=== PATIENT | male | born 1945 | race Caucasian/White ===

== ENCOUNTER → 2021-01-28 | Outpatient (CLI) | payer MEDICARE | LOC: SJCVCIMAG 12:51 | PROVIDERS: ATTEND Nuclear Medicine Nuclear Cardiology | DX: I70.203 Unspecified atherosclerosis of native arteries of extremities, bilateral legs (principal); M79.606 Pain in leg, unspecified; I10 Essential (primary) hypertension; E78.00 Pure hypercholesterolemia, unspecified; I25.10 Atherosclerotic heart disease of native coronary artery without angina pectoris; E11.9 Type 2 diabetes mellitus without complications; Z88.8 Allergy status to other drugs, medicaments and biological substances; Z79.82 Long term (current) use of aspirin; Z79.899 Other long term (current) drug therapy; Z79.84 Long term (current) use of oral hypoglycemic drugs; M10.9 Gout, unspecified; Z95.1 Presence of aortocoronary bypass graft ==

== ENCOUNTER → 2021-05-01 | Outpatient (CLI) | payer MEDICARE | LOC: SJCVCIMAG 13:00 | PROVIDERS: ATTEND Nuclear Medicine Nuclear Cardiology | DX: I70.203 Unspecified atherosclerosis of native arteries of extremities, bilateral legs (principal); I25.10 Atherosclerotic heart disease of native coronary artery without angina pectoris; E78.00 Pure hypercholesterolemia, unspecified; I10 Essential (primary) hypertension; M10.9 Gout, unspecified; E11.42 Type 2 diabetes mellitus with diabetic polyneuropathy; I25.2 Old myocardial infarction; Z82.49 Family history of ischemic heart disease and other diseases of the circulatory system; Z88.8 Allergy status to other drugs, medicaments and biological substances; Z79.82 Long term (current) use of aspirin; Z79.84 Long term (current) use of oral hypoglycemic drugs; Z79.899 Other long term (current) drug therapy ==

== ENCOUNTER → 2021-05-06 | Outpatient (CLI) | payer OTHER | LOC: SJCVC 09:04 | PROVIDERS: ATTEND Nuclear Medicine Nuclear Cardiology | DX: I73.9 Peripheral vascular disease, unspecified (principal); I10 Essential (primary) hypertension; E78.00 Pure hypercholesterolemia, unspecified; I48.91 Unspecified atrial fibrillation; M10.9 Gout, unspecified; I25.2 Old myocardial infarction; E11.40 Type 2 diabetes mellitus with diabetic neuropathy, unspecified; I25.10 Atherosclerotic heart disease of native coronary artery without angina pectoris; Z88.8 Allergy status to other drugs, medicaments and biological substances; Z79.82 Long term (current) use of aspirin; Z79.899 Other long term (current) drug therapy; Z79.84 Long term (current) use of oral hypoglycemic drugs; Z95.5 Presence of coronary angioplasty implant and graft; Z82.49 Family history of ischemic heart disease and other diseases of the circulatory system ==

== ENCOUNTER → 2021-05-12 | Outpatient (CLI) | payer OTHER ==
[~2021-05-12] VITALS: Ht 188 cm; Wt 136.1 kg
[~2021-05-12] MED LIST: ALLOPURINOL 10100 M3 PO; AMIODARONE HCL400 MG PO; ASA81BEC PO; CARVEDILOL12.5 MG PO; CLONAZEPAM 0.50.5 M1 PO; COENZYME Q-1030 MG PO; ELIQUIS5 MG PO; FUROSEMIDE 20 M20 MG PO; FUROSEMIDE 40 M40 MG PO; GLIPIZIDE 10 MG10 MG PO; KLOR-CON M2020 MEQ PO; LEVO-T50 MCG PO; LIPITOR40 MG PO; LYRICA100 MG PO; OMEPRAZOLE 20 M20 M1 PO; PROSCAR 5MG TABL5 M1 PO; VITAMIN B-6100 MG PO
[2021-05-12 07:55] VITALS: BP 132/74
[2021-05-12 08:13] LABS: HEMATOCRIT 36.4 % (42.0-52.0); MCH 32.6 pg (26.0-34.0); MCHC 32.9 g/dL (28.0-37.0); MCV 99.1 fL (80.0-100.0); RBC 3.67 mil/uL (4.50-6.00); WBC 6.2 thou/uL (4.0-11.0)
[2021-05-12 08:58] LABS: CALCIUM 9.2 mg/dL (8.5-10.1); CREATININE 1.5 mg/dL (0.7-1.3)
--- NOTE | 2021-05-12 12:48 | NUR ---
PT TO GO HOME AND RESCHEDULE FOR TUESDAY. PT GIVEN INSTRUCTIONS TO TAKE [facility] TODAY AND THEN HOLD UNTIL AFTER PROCEDURE ON TUESDAY. RESCHEDULED ON TUESDAY DUE TO EMERGENT PROCEDURE BY DR HARVEY THAT IS TAKING LONGER THAN EXPECTED. PT IS STATES UNDERSTANDING OF SITUATION. PT DID NOT WANT TO STAY AND WAIT FOR PROCEDURE TODAY CANNOT DRIVE AT NIGHT, STATES CAN MAKE ARRANGEMENTS FOR OTHER TRANSPORTATION ON TUESDAY FOR DC. DR HARVEY AWARE PT IS GOING TO RESCHEDULE AND IS ALSO AGREEABLE.
== END | disposition home or self-care (01) ==
LOC: CATH 07:14
PROVIDERS: ATTEND Nuclear Medicine Nuclear Cardiology
DX: I73.9 Peripheral vascular disease, unspecified (principal); Z53.8 Procedure and treatment not carried out for other reasons; I10 Essential (primary) hypertension; I25.10 Atherosclerotic heart disease of native coronary artery without angina pectoris; I48.91 Unspecified atrial fibrillation; Z98.890 Other specified postprocedural states; Z79.899 Other long term (current) drug therapy; Z95.0 Presence of cardiac pacemaker; Z79.01 Long term (current) use of anticoagulants; Z88.8 Allergy status to other drugs, medicaments and biological substances

== ENCOUNTER → 2021-05-15 | Outpatient (CLI) | payer OTHER ==
[~2021-05-15] VITALS: Ht 188 cm; Wt 136.1 kg
[2021-05-15 11:05] VITALS: BP 143/88
--- NOTE | 2021-05-15 16:27 | NUR ---
LATE ENTRY. PTS BP NOTED TO INCREASE AFTER HYDRALIZINE 20MG. DR. HARVEY CONTACTED AND ORDERS RECEIVED. IN TIME OF GETTING MEDS FROM [facility]. NOTED PTS BP TO RETURN BELOW [address] HARVEY RECONTACTED AND REPORT GIVEN ALL MEDS HELD AT THIS TIME.
== END | disposition home or self-care (01) ==
LOC: CATH 07:37
PROVIDERS: ATTEND Nuclear Medicine Nuclear Cardiology
DX: I70.248 Atherosclerosis of native arteries of left leg with ulceration of other part of lower leg (principal); L97.929 Non-pressure chronic ulcer of unspecified part of left lower leg with unspecified severity; I70.213 Atherosclerosis of native arteries of extremities with intermittent claudication, bilateral legs; M79.605 Pain in left leg; I70.1 Atherosclerosis of renal artery; I10 Essential (primary) hypertension; I25.10 Atherosclerotic heart disease of native coronary artery without angina pectoris; E11.9 Type 2 diabetes mellitus without complications; E78.00 Pure hypercholesterolemia, unspecified; I25.2 Old myocardial infarction; I48.91 Unspecified atrial fibrillation; Z98.890 Other specified postprocedural states; Z79.899 Other long term (current) drug therapy; Z79.01 Long term (current) use of anticoagulants; Z95.0 Presence of cardiac pacemaker; Z88.8 Allergy status to other drugs, medicaments and biological substances